=== PATIENT | female | born 1960 | race American Indian/Alaskan Native ===

== ENCOUNTER 2016-12-18 17:47 | Emergency (ER) | payer OTHER ==
[2016-12-18 17:57] VITALS: BMI 34.2
[2016-12-18 18:03] VITALS: TEMP 98.4; O2SAT 99
--- NOTE | 2016-12-18 18:42 | ED PDOC ---
Arrival/HPI - General Chief Complaint: Cough, Cold, Congestion Time Seen by Provider: 12/18/16 18:21 Historian: Patient - History of Present Illness Narrative History of Present Illness (Text): 12/18/16 18:38 56 yo F presents to the emergency room complaining of facial pain, nasal congestion, runny nose and cough for the past 3 days. Otherwise denies any fever , chills, shortness of breath, chest pain, nausea, vomiting, recent travel, sick contacts, and urinary symptoms. Has no other complaints. DILAN Keller Past Medical History - Provider Review Nursing Documentation Reviewed: Yes - Infectious Disease Hx of Infectious Diseases: None - Tetanus Immunization Tetanus Immunization: Unknown - Past Medical History Past Medical History: No Previous - Psychiatric Hx Depression: No Hx Emotional Abuse: No Hx Physical Abuse: No Hx Substance Use: No - Surgical History Hx Cholecystectomy: Yes Hx Dilation and Curettage: Yes - Anesthesia Hx Anesthesia: Yes Hx Anesthesia Reactions: No Hx Malignant Hyperthermia: No - Suicidal Assessment Feels Threatened In Home Enviroment: No Family/Social History - Physician Review Nursing Documentation Reviewed: Yes Family/Social History: No Known Family HX Smoking Status: Former Smoker Hx Alcohol Use: No Hx Substance Use: No Allergies/Home Meds Allergies/Adverse Reactions: Allergies tomato Allergy (Verified 07/02/16 10:39) ANAPHYLAXIS Home Medications: Home Meds Medication Instructions Recorded Confirmed Estradiol [Vagifem] 1 tab PO Q3D 12/18/16 12/18/16 Progesterone, Micronized 1 tab PO DAILY 12/18/16 12/18/16 [Progesterone] Review of Systems - Review of Systems Constitutional: Normal. absent: Fatigue, Weight Change, Fevers ENT: Normal, Rhinorrhea, Sinus Congestion. absent: Hearing Changes, Tinnitus, Sore Throat, Epistaxis Respiratory: Normal, Cough. absent: SOB, Sputum, Wheezing Cardiovascular: Normal. absent: Chest Pain, Palpitations, Edema Skin: Normal. absent: Rash, Pruritis, Skin Lesions Physical Exam - Physical Exam Narrative Physical Exam (Text): 12/18/16 18:39 GENERAL APPEARANCE: Patient is awake, alert, oriented x 3, in no acute distress. SKIN: Warm, dry; (-) cyanosis, (-) rash. EYES: (-) conjunctival pallor, (-) scleral icterus, (-) conjunctival hemorrhage. ENMT: Mucous membranes moist. TMs: (-) erythema. Airway patent: (-) stridor. Pharynx: (-) erythema, (-) exudate. Sinuses: (+) frontal and maxillary sinus tenderness. NECK: (-) tenderness, (-) stiffness, (-) meningismus, (-) lymphadenopathy. CHEST AND RESPIRATORY: (-) accessory muscle use. Lungs: (-) rales, (-) rhonchi, (-) wheezes, (-) rub; breath sounds equal bilaterally. HEART AND CARDIOVASCULAR: (-) irregularity; (-) murmur, (-) gallop, (-) rub. EXTREMITIES: (-) deformity; (-) cellulitis, (-) lymphangitis; (-) subungual hemorrhage; (-) edema. NEURO AND PSYCH: Mental status as above; (-) focal findings. Vital Signs Temp Pulse Resp BP Pulse Ox 12/18/16 18:02 98.4 F 85 18 122/74 99 Medical Decision Making ED Course and Treatment: 12/18/16 18:40 56 yo F presents to the emergency room complaining of facial pain, nasal congestion, runny nose and cough for the past 3 days. Patient notified of likely diagnosis of sinusitis. Rx for amoxicillin and flonase sent to patient's pharmacy. Advised to follow up with primary care physician in 1-2 days without fail. Advised to take medication as prescribed. Instructed to return to the emergency room at any time for any new or worsening symptoms. Patient states she fully agrees with and understands discharge instructions. States that she agrees with the plan and disposition. Verbalized and repeated discharge instructions and plan. I have given the patient opportunity to ask any additional questions. - PA / REHABILITATION AIDE/SCHEDULER / Resident Statement MD/DO has reviewed & agrees with the documentation as recorded. Disposition/Present on Arrival - Present on Arrival Any Indicators Present on Arrival: No History of DVT/PE: No History of Uncontrolled Diabetes: No Urinary Catheter: No History of Decub. Ulcer: No History Surgical Site Infection Following: None - Disposition Have Diagnosis and Disposition been Completed?: Yes Diagnosis: Sinusitis Disposition: HOME/ ROUTINE Disposition Time: 18:42 Patient Plan: Discharge Patient Problems: Current Active Problems Problem Status Onset Sinusitis Acute Condition: STABLE Discharge Instructions (ExitCare): Sinusitis (ED) Print Language: ANGOLAN Additional Instructions: Thank you for letting us take care of you today. You were treated for sinusitis. The emergency medical care you received today was directed at your acute symptoms. If you were prescribed any medication, please fill it and take as directed. It may take several days for your symptoms to resolve. Return to the Emergency Department if your symptoms worsen, do not improve, or if you have any other problems. Please contact your doctor in 2 days for re-evaluation and follow up. Bring any paperwork you were given at discharge with you along with any medications you are taking to your follow up visit. Our treatment cannot replace ongoing medical care by a primary care provider (PCP) outside of the emergency department. Thank you for allowing the [facility] team to be part of your care today. Prescriptions: Amoxicillin 500 mg PO TID #30 tablet Fluticasone Nasal [Flonase] 1 spr NS DAILY #1 spr Forms: [employer] (Bermudian), WORK NOTE
[2016-12-18 19:09] VITALS: BP 124/74; PULSE 81; RESP 17
== END 2016-12-18 19:09 | disposition home or self-care (01) ==
LOC: ED 17:47
DX: J32.9 Chronic sinusitis, unspecified (principal)

== ENCOUNTER 2017-06-08 07:14 | Emergency (ER) | payer OTHER ==
[2017-06-08 07:28] VITALS: TEMP 98
--- NOTE | 2017-06-08 07:58 | ED PDOC ---
Arrival/HPI - General Chief Complaint: Flu-like Symptoms Time Seen by Provider: 06/08/17 07:39 Historian: Patient - History of Present Illness Narrative History of Present Illness (Text): 06/08/17 07:56 56 year old female, with no significant past medical history, presents to the Emergency department complaining of coughing with yellow phlegm, sneezing, headache and mild sore sore throat for past 2 days. Patient informs taking the flu shot this year. Patient denies any fever, chills, nausea, vomiting, abdominal pain, diarrhea, chest pain, shortness of breath or any other complaints. Time/Duration: < week Symptom Onset: Gradual Symptom Course: Unchanged Activities at Onset: Light Context: Home Past Medical History - Provider Review Nursing Documentation Reviewed: Yes - Infectious Disease Hx of Infectious Diseases: None - Psychiatric Hx Substance Use: No Family/Social History - Physician Review Nursing Documentation Reviewed: Yes Family/Social History: No Known Family HX Smoking Status: Never Smoked Hx Alcohol Use: No Hx Substance Use: No Allergies/Home Meds Allergies/Adverse Reactions: Allergies No Known Allergies Allergy (Verified 06/08/17 07:28) Review of Systems - Physician Review All systems were reviewed & negative as marked: Yes - Review of Systems Constitutional: Normal. absent: Fevers Eyes: Normal ENT: Sore Throat Respiratory: Cough. absent: SOB Cardiovascular: Normal. absent: Chest Pain Gastrointestinal: Normal. absent: Abdominal Pain, Diarrhea, Nausea, Vomiting Genitourinary Female: Normal Musculoskeletal: Normal Skin: Normal Neurological: Headache Endocrine: Normal Hemo/Lymphatic: Normal Psychiatric: Normal Physical Exam Vital Signs Reviewed: Yes Vital Signs Temp Pulse Resp BP Pulse Ox 06/08/17 08:56 98 F 84 17 128/70 97 06/08/17 07:25 98 F 100 H 18 136/83 96 Temperature: Afebrile Blood Pressure: Normal Pulse: Regular Respiratory Rate: Normal Appearance: Positive for: Well-Appearing, Non-Toxic, Comfortable Pain Distress: None Mental Status: Positive for: Alert and Oriented X 3 - Systems Exam Head: Present: Atraumatic, Normocephalic Pupils: Present: PERRL Extroacular Muscles: Present: EOMI Conjunctiva: Present: Normal Mouth: Present: Moist Mucous Membranes Pharnyx: Present: ERYTHEMA (mild) Neck: Present: Normal Range of Motion Respiratory/Chest: Present: Clear to Auscultation, Good Air Exchange. No: Respiratory Distress, Accessory Muscle Use Cardiovascular: Present: Regular Rate and Rhythm, Normal S1, S2. No: Murmurs Abdomen: Present: Normal Bowel Sounds. No: Tenderness, Distention, Peritoneal Signs Back: Present: Normal Inspection Upper Extremity: Present: Normal Inspection. No: Cyanosis, Edema Neurological: Present: GCS=15, CN II-XII Intact, Speech Normal Skin: Present: Warm, Dry, Normal Color. No: Rashes Psychiatric: Present: Alert, Oriented x 3, Normal Insight, Normal Concentration Medical Decision Making ED Course and Treatment: 06/08/17 08:00 Impression: 56 year old female presents to the Emergency department for flu- like symptoms. Plan: -- Rapid flu A/B -- Chest X-ray -- Reassess and disposition Progress Notes: 06/08/17 08:00 Patient denies Chest X-ray and only request the rapid flu test to be performed. - Lab Interpretations Lab Results: Lab Results 06/08/17 07:50: Grp A Beta Strep Ag Negative 06/08/17 07:25: Influenza Typ A,B (EIA) Negative for flu a/b - Scribe Statement The provider has reviewed the documentation as recorded by the Scribe Samantha Medina. All medical record entries made by the Scribe were at my direction and personally dictated by me. I have reviewed the chart and agree that the record accurately reflects my personal performance of the history, physical exam, medical decision making, and the department course for this patient. I have also personally directed, reviewed, and agree with the discharge instructions and disposition. Disposition/Present on Arrival - Present on Arrival Any Indicators Present on Arrival: No History of DVT/PE: No History of Uncontrolled Diabetes: No Urinary Catheter: No History of Decub. Ulcer: No History Surgical Site Infection Following: None - Disposition Have Diagnosis and Disposition been Completed?: Yes Diagnosis: Influenza-like illness Disposition: HOME/ ROUTINE Disposition Time: 09:00 Condition: STABLE Discharge Instructions (ExitCare): Influenza (ED), Viral Syndrome (ED) Prescriptions: Oseltamivir Phosphate [Tamiflu] 75 mg PO BID #10 capsule Referrals: Terrance Keller DO [Primary Care Provider] - Follow up with primary Forms: [facility] (Nepali), WORK NOTE
[2017-06-08 08:57] VITALS: BP 128/70; PULSE 84; RESP 17; O2SAT 97
== END 2017-06-08 08:57 | disposition home or self-care (01) ==
LOC: EDSEX → ED 07:14 → MERGE 07:14 → ED 08:57
DX: J11.1 Influenza due to unidentified influenza virus with other respiratory manifestations (principal)

== ENCOUNTER 2017-09-01 17:51 | Emergency (ER) | payer OTHER ==
[2017-09-01 17:51] VITALS: BMI 34.2
== END 2017-09-01 18:24 | disposition left against medical advice (07) ==
LOC: ED 17:51
DX: Z02.89 Encounter for other administrative examinations (principal); M79.672 Pain in left foot

== ENCOUNTER 2017-11-16 19:34 | Emergency (ER) | payer OTHER ==
[2017-11-16 19:34] VITALS: BMI 34.2
--- NOTE | 2017-11-16 20:52 | ED PDOC ---
Arrival/HPI - General Chief Complaint: Lower Extremity Problem/Injury Time Seen by Provider: 11/16/17 19:53 Historian: Patient - History of Present Illness Narrative History of Present Illness (Text): 11/16/17 20:50 A 57 year old female, with no significant past medical history, presents to the emergency department complaining of right knee discomfort. Patient reports pain occurs in calf behind right knee and has seen her PMD. PMD ordered Doppler Lower Extremity, which I reviewed and found to be negative. Patient then adds that she accidentally twisted her right knee to the lateral medial aspect while walking today. Patient denies any difficulty ambulating or any other complaints at this time. No PMD Past Medical History - Provider Review Nursing Documentation Reviewed: Yes - Infectious Disease Hx of Infectious Diseases: None - Tetanus Immunization Tetanus Immunization: Unknown - Reproductive Menopause: Yes - Past Medical History Past Medical History: No Previous - Psychiatric Hx Depression: No Hx Emotional Abuse: No Hx Physical Abuse: No Hx Substance Use: No - Surgical History Hx Cholecystectomy: Yes Hx Dilation and Curettage: Yes - Anesthesia Hx Anesthesia: Yes Hx Anesthesia Reactions: No Hx Malignant Hyperthermia: No - Suicidal Assessment Feels Threatened In Home Enviroment: No Family/Social History - Physician Review Nursing Documentation Reviewed: Yes Family/Social History: No Known Family HX Smoking Status: Former Smoker Hx Alcohol Use: No Hx Substance Use: No Allergies/Home Meds Allergies/Adverse Reactions: Allergies tomato Allergy (Verified 11/16/17 20:13) ANAPHYLAXIS Home Medications: Home Meds Medication Instructions Recorded Confirmed Estradiol [Vagifem] 1 tab PO Q3D 12/18/16 12/18/16 Progesterone, Micronized 1 tab PO DAILY 12/18/16 12/18/16 [Progesterone] Review of Systems - Physician Review All systems were reviewed & negative as marked: Yes - Review of Systems Constitutional: absent: Fevers, Night Sweats Respiratory: absent: SOB Cardiovascular: absent: Chest Pain Gastrointestinal: absent: Abdominal Pain Musculoskeletal: Other (right knee discomfort to lateral medial aspect) Physical Exam Vital Signs Reviewed: Yes Vital Signs Temp Pulse Resp BP Pulse Ox 11/16/17 20:07 98 F 89 19 137/91 H 98 Temperature: Afebrile Blood Pressure: Normal Pulse: Regular Respiratory Rate: Normal Appearance: Positive for: Well-Appearing, Non-Toxic, Comfortable Pain Distress: None Mental Status: Positive for: Alert and Oriented X 3 - Systems Exam Head: Present: Atraumatic, Normocephalic Pupils: Present: PERRL Extroacular Muscles: Present: EOMI Conjunctiva: Present: Normal Neck: Present: Normal Range of Motion Respiratory/Chest: Present: Clear to Auscultation, Good Air Exchange. No: Respiratory Distress, Accessory Muscle Use Cardiovascular: Present: Regular Rate and Rhythm, Normal S1, S2. No: Murmurs Abdomen: No: Tenderness, Distention, Peritoneal Signs Back: Present: Normal Inspection Upper Extremity: Present: Normal Inspection. No: Cyanosis, Edema Lower Extremity: Present: Normal Inspection, Other (right knee discomfort to flexation and extention). No: Edema Neurological: Present: GCS=15, CN II-XII Intact, Speech Normal Skin: Present: Warm, Dry, Normal Color. No: Rashes Psychiatric: Present: Alert, Oriented x 3, Normal Insight, Normal Concentration Medical Decision Making ED Course and Treatment: 11/16/17 20:54 Impression: 57 year old female with right knee discomfort. Plan: -- Right Knee X-Ray -- Motrin -- Reassess and disposition Progress Notes: - RAD Interpretation Narrative RAD Interpretations (Text): 11/16/17 21:39 Knee- no acute process Radiology Orders: 11/16/17 20:22 KNEE RIGHT 2 VIEWS (AP & LAT) [RAD] Stat Swimming Instructor: ED Physician - Medication Orders Current Medication Orders: Discontinued Medications Ibuprofen (Motrin Tab) 600 mg PO STAT STA Stop: 11/16/17 20:27 Last Admin: 11/16/17 20:43 Dose: 600 mg MAR Pain/Vitals Document 11/16/17 20:43 (Rec: 11/16/17 20:43 [facility]) Pain Reassessment Is This A Pain ReAssessment? No Sleep Is patient sleeping during reassessment? No Presence of Pain Presence of Pain Yes Pain Scale Used Pain Scale Used Numeric Location Left, Right or Bilateral Right - Scribe Statement The provider has reviewed the documentation as recorded by the Prema Pino Provider Scribe Attestation: All medical record entries made by the Scribe were at my direction and personally dictated by me. I have reviewed the chart and agree that the record accurately reflects my personal performance of the history, physical exam, medical decision making, and the department course for this patient. I have also personally directed, reviewed, and agree with the discharge instructions and disposition. Disposition/Present on Arrival - Present on Arrival Any Indicators Present on Arrival: No History of DVT/PE: No History of Uncontrolled Diabetes: No Urinary Catheter: No History of Decub. Ulcer: No History Surgical Site Infection Following: None - Disposition Have Diagnosis and Disposition been Completed?: Yes Diagnosis: Knee sprain Disposition: HOME/ ROUTINE Disposition Time: 21:43 Patient Plan: Discharge Condition: GOOD Discharge Instructions (ExitCare): Knee Sprain (DC) Additional Instructions: Maintain knee immobilizer/use crutches/no weight bearing on the affected area/ meds as prescribed/follow up with the orthopedist this week Prescriptions: Naproxen [Naprosyn Tab] 375 mg PO BID PRN #14 tab PRN Reason: Pain, Moderate (4-7) Referrals: Earl Mason DO [Staff Provider] - Follow up with primary Forms: [email or web address] (Croatian)
[2017-11-16 22:03] VITALS: BP 126/84; PULSE 82; TEMP 98.1; O2SAT 99
[2017-11-16 22:53] VITALS: RESP 98
--- NOTE | 2017-11-18 10:04 | RAD ---
Date of service: 11/16/2017 PROCEDURE: Right Knee Radiographs. HISTORY: Injury COMPARISON: None. FINDINGS: BONES: Bone alignment and mineralization are normal. There is no acute displaced fracture or bone destruction. JOINTS: There is mild tricompartmental degenerative osteoarthrosis with reduced joint spaces, marginal osteophytes and tibial spiking, worse in the media compartment. JOINT EFFUSION: There is a small suprapatellar joint OTHER FINDINGS: None. IMPRESSION: No acute fracture or dislocation. Small suprapatellar joint effusion.
== END 2017-11-16 22:35 | disposition home or self-care (01) ==
LOC: ED 19:34
DX: S83.91XA Sprain of unspecified site of right knee, initial encounter (principal); X50.1XXA Overexertion from prolonged static or awkward postures, initial encounter; Z87.891 Personal history of nicotine dependence

== ENCOUNTER 2018-09-16 12:05 | Outpatient (CLI) | payer OTHER | END 2018-09-16 12:06 | disposition home or self-care (01) | LOC: RAD 12:05 ==